=== PATIENT | male | born 1965 | race Caucasian/White ===

== ENCOUNTER 2020-11-25 06:30 | Day surgery (SDC) | payer MEDICAID ==
[~2020-11-25] VITALS: Ht 167.6 cm; Wt 96.6 kg
[2020-11-25] MEDS ORDERED: fentaNYL CITRATE/PF 100 MCG/2 ML AMP ONE (07:11)
[2020-11-25] MEDS ORDERED: MIDAZOLAM HCL 5 MG/5 ML VIAL ONE (07:12)
[2020-11-25] MEDS ORDERED: SIMETHICONE 40 MG/0.6 ML ML ONE (07:45)
[2020-11-25 14:30] VITALS: BP_SYST 135
== END 2020-11-25 09:05 | disposition home or self-care (01) ==
LOC: SDS 06:30 → SMU 06:33 → SDS 09:05
PROVIDERS: ATTEND Internal Medicine
DX: R19.5 Other fecal abnormalities (principal); D12.2 Benign neoplasm of ascending colon; K64.8 Other hemorrhoids; I10 Essential (primary) hypertension; Z20.822 Contact with and (suspected) exposure to COVID-19; Z79.899 Other long term (current) drug therapy
CPT/HCPCS: 45380; 45385; 88305; 96365; 99152; G0378; J2250; J3010; U0003; U0005